=== PATIENT | female | born 1980 | race Caucasian/White ===

== ENCOUNTER 2020-02-08 06:37 | Day surgery (SDC) | payer BC, OTHER ==
[~2020-02-08 06:37] MED LIST: Lactated Ringers 1,000 ML IV SCH
[2020-02-08] MEDS ORDERED: fentaNYL 100 MCG/2 ML SDV ONE ×2 (07:14→08:47)
[2020-02-08] MEDS ORDERED: Lidocaine 2% 5 ML SDV ONE (07:14)
[2020-02-08] MEDS ORDERED: Ketorolac 30 MG/ML SDV ONE (07:14)
[2020-02-08] MEDS ORDERED: Ondansetron 4 MG/2 ML SDV ONE (07:14)
[2020-02-08] MEDS ORDERED: Glycopyrrolate 0.2 MG/ML SDV ONE (07:14)
[2020-02-08] MEDS ORDERED: Midazolam 1 MG/ML 2 ML SDV ONE (07:14)
[2020-02-08] MEDS ORDERED: Propofol 200 MG/20 ML SDV ONE ×2 (07:14→08:13)
--- NOTE | 2020-02-08 07:16 | PCM.PREANE ---
Preanesthetic Assessment - Anesthesia/Transfusion/Family Hx Anesthesia History: Prior Anesthesia Without Reaction Family History of Anesthesia Reaction: No Transfusion History: No Prior Transfusion(s) - Review of Systems General: No Symptoms Pulmonary: No Symptoms Cardiovascular: No Symptoms Gastrointestinal: No Symptoms Neurological: No Symptoms Other: Reports: None - Physical Assessment NPO Status Date: 02/07/20 Vital Signs: Last Vital Signs Temp 98.2 F 02/08/20 07:00 Pulse 67 02/08/20 07:00 Resp 18 02/08/20 07:00 BP 107/69 02/08/20 07:00 Pulse Ox 96 02/08/20 07:00 Height: 5 ft 4 in Weight: 119.295 kg Mental Status: Alert & Oriented x3 Airway Class: Mallampati = 2 Dentition: Reports: Normal Dentition ROM/Head Extension: Full Lungs: Clear to Auscultation, Normal Respiratory Effort Cardiovascular: Regular Rate, Regular Rhythm - Lab Values: Laboratory Last Values Urine HCG, Qual NEGATIVE (NEGATIVE) 02/08/20 06:50 - Allergies Allergies/Adverse Reactions: Allergies Allergy/AdvReac Type Severity Reaction Status Date / Time No Known Allergies Allergy Verified 02/02/20 09:14 - Blood Blood Available: No - Anesthesia Plan Pre-Op Medication Ordered: None - Acknowledgements Anesthesia Type Planned: General Anesthesia Pt an Appropriate Candidate for the Planned Anesthesia: Yes Alternatives and Risks of Anesthesia Discussed w Pt/Guardian: Yes Pt/Guardian Understands and Agrees with Anesthesia Plan: Yes Additional Comments: anes prob list: MO, suspect JERMAIN, ckd3- eGFR of 55 PLAN: ga/lma PreAnesthesia Questionnaire HEENT History: Reports: None Cardiovascular History: Reports: None Respiratory History: Reports: None Gastrointestinal History: Reports: None Genitourinary History: Reports: None NUT FORMER History: Reports: Musculoskeletal History: Reports: None Neurological History: Reports: None Psychiatric History: Reports: None Endocrine/Metabolic History: Reports: Obesity/BMI 30+ Hematologic History: Reports: None Immunologic History: Reports: None Oncologic (Cancer) History: Reports: None Dermatologic History: Reports: None - Past Surgical History Head Surgeries/Procedures: Reports: None HEENT Surgical History: Reports: Oral Surgery, Tonsillectomy Cardiovascular Surgical History: Reports: None Respiratory Surgical History: Reports: None GI Surgical History: Reports: None Female Surgical History: Reports: Section Endocrine Surgical History: Reports: None Neurological Surgical History: Reports: None Musculoskeletal Surgical History: Reports: None Oncologic Surgical History: Reports: None Dermatological Surgical History: Reports: None - SUBSTANCE USE Tobacco Use Status *Q: Never Tobacco User - HOME MEDS Home Medications: Home Meds . [No Known Home Meds] 02/02/20 [History] - CURRENT (IN HOUSE) MEDS Current Meds: Current Medications Lactated Ringer's (Ringers, Lactated) 1,000 mls @ 125 mls/hr IV ASDIRECTED [facility] Last Admin: 02/08/20 07:12 Dose: 125 mls/hr Documented by: Cefazolin Sodium/Dextrose 2 gm (/ Premix) 50 mls @ 100 mls/hr IV ONETIME ONE Stop: 02/08/20 08:29
[2020-02-08] MEDS ORDERED: Bupivacaine 25%/EPINEPHrine/PF 0 ML ONE (07:33)
[2020-02-08] MEDS ORDERED: ceFAZolin 1 GM Vial ONE (07:34)
[2020-02-08] MEDS ORDERED: Sodium Chloride 0.9% 20 ML ONE (07:34)
[2020-02-08] MEDS ORDERED: Bupivacaine 0.5% 30 ML SDV ONE (07:36)
[2020-02-08] MEDS ORDERED: ceFAZolin 2 GM in Premix Bag 1 BAG IV ONE (08:00)
[2020-02-08] MEDS ORDERED: Acetaminophen 1,000 MG in Premix Bag 1 BAG IV PRN (08:52)
[2020-02-08] MEDS ORDERED: fentaNYL 100 MCG/2 ML SDV IVPUSH PRN (08:52)
--- NOTE | 2020-02-08 09:48 | PCM.POSTAN ---
POST ANESTHESIA ASSESSMENT - MENTAL STATUS Mental Status: Alert, Oriented - VITAL SIGNS Vital Signs: Last Vital Signs Temp 96.8 F L 02/08/20 09:22 Pulse 70 02/08/20 09:38 Resp 18 02/08/20 09:38 BP 108/52 L 02/08/20 09:38 Pulse Ox 95 02/08/20 09:38 - RESPIRATORY Respiratory Status: Respiratory Rate WNL, Airway Patent, O2 Saturation Stable - CARDIOVASCULAR CV Status: Pulse Rate WNL, Blood Pressure Stable - GASTROINTESTINAL GI Status: No Symptoms - POST OP HYDRATION Hydration Status: Adequate & Stable
--- NOTE | 2020-02-08 10:00 | PCM.OPNOTE ---
- General Post-Op/Procedure Note Date of Surgery/Procedure: 02/08/20 Operative Procedure(s): excision of cysts left foot Findings: consistent with diagnosis Pre Op Diagnosis: cysts left foot Post-Op Diagnosis: cysts left foot Primary Surgeon: Waldo Cisneros Pathology: lobulated cysts left foot in one piece EBL in mLs: 5 Complications: none Condition: Good Free Text/Narrative:: Intake & Output 02/07/20 02/08/20 02/08/20 22:59 06:59 14:59 Intake Total 900 Balance 900 tourniquet time: 40 min materials: 3-0 vicryl, 4-0 vicryl, 4-0 stratafix injectables: 7 ml 0.5% marcaine plain
[2020-02-08] MEDS ORDERED: Acetaminophen/HYDROcodone 325-5 MG Tab PO PRN (10:48)
--- NOTE | 2020-02-08 12:07 | PN ---
The patient is a 39-year-old female. PLANNED PROCEDURE: Excision of cysts, left foot. MEDICAL HISTORY: History of sinusitis. ALLERGIES: No known allergies. ACTIVE PROBLEMS: Include discoloration and thickening of nails of both feet, ganglion or other cysts of left foot, left knee sprain, screening for depression, and vaginal discharge. LABORATORY DATA: White blood cell 10.41, red blood cell 5.14, hemoglobin 14.4, hematocrit 44.0, and platelets 304. Sodium 141, potassium 4.0, chloride 104, CO2 of 27.7, random glucose 88, BUN 16, and creatinine 1.1. Chest x-ray showed no pleural effusion or pneumothorax identified. There is probable lingular atelectasis. The patient has been cleared for surgery by Dr. Elda Kelly and Dr. Javier Rosales. No contraindications to surgery noted. The patient's questions have been asked and answered. Risks and benefits have been discussed with the patient. No guarantees expressed or implied. The patient presents for surgical excision of cysts, left foot today. MARIA ELENA / RACHELL /[id number] MTDD
--- NOTE | 2020-02-08 12:59 | PCM48HPAN ---
Post Anesthesia Note - EVALUATION WITHIN 48HRS OF ANESTHETIC Vital Signs in Normal Range: Yes Patient Participated in Evaluation: Yes Respiratory Function Stable: Yes Airway Patent: Yes Cardiovascular Function Stable: Yes Hydration Status Stable: Yes Pain Control Satisfactory: Yes Nausea and Vomiting Control Satisfactory: Yes Mental Status Recovered: Yes Vital Signs: Last Vital Signs Temp 97.2 F 02/08/20 09:45 Pulse 64 02/08/20 10:59 Resp 16 02/08/20 10:59 BP 102/64 02/08/20 10:59 Pulse Ox 96 02/08/20 10:59
--- NOTE | 2020-02-09 05:23 | OR ---
SURGEON: Waldo Cisneros DPM DATE OF PROCEDURE: 02/08/2020 OPERATIVE PROCEDURE: Excision of cyst, left foot. PREOPERATIVE DIAGNOSIS: Cyst, left foot. POSTOPERATIVE DIAGNOSIS: Cyst, left foot. ANESTHESIA: General. HEMOSTASIS: An above-ankle pneumatic tourniquet on the left lower extremity inflated to 250 mmHg for a tourniquet time of 40 minutes. ESTIMATED BLOOD LOSS: 5 mL. PATHOLOGY: A lobulated cyst, left foot, removed in 1 piece. COMPLICATIONS: None. MATERIALS: 3-0 Vicryl, 4-0 Vicryl, and 4-0 Stratafix. INJECTABLES: 7 mL of 0.5% Marcaine plain. CONDITION: The patient tolerated the procedure and the anesthesia well with no complications noted. JUSTIFICATION FOR THE PROCEDURE: The patient has longstanding pain on the dorsolateral left midfoot due to the formation and growth of a cyst, likely a ganglion, although this is still to be determined, on the dorsolateral aspect of her left foot, impeding her ability to wear shoe gear comfortably, and conservative treatment, including aspiration of the site, has failed to provide lasting alleviation of the symptoms for the patient; therefore, the patient has been advised and has elected to proceed with surgical excision of the cyst on the left foot. All of the patient's questions were asked and answered, no guarantees were expressed or implied, and the patient signed a written consent form with a witness present, and it was placed in the patient's chart. PROCEDURE IN DETAIL: The patient was brought to the operating room and placed on the operating table, at which time an aseptic scrub and drape was performed about the patient's left foot. A time-out was performed, verifying the correct surgical site and planned procedure. The incision site was marked. An Esmarch bandage exsanguination was performed. The tourniquet was inflated. An oblique incision, approximately 3 cm in length, was made over the palpable mass on the left foot. All small bleeders were cauterized as necessary, and layered dissection was performed. The ganglion cyst was identified. It was excised in toto, and I would add that it appeared to be multilobulated, and it appeared to be ganglion in nature, but this is for Pathology to determine. The mass was placed in a sterile formalin- filled container and sent to Pathology for gross and histologic examination. The area was flushed with normal sterile saline and reexamined for any further evidence of remaining cyst material. None was found, and layered closure commenced with the deep tissue closed with 3-0 Vicryl, subcutaneous with 4-0 Vicryl, and the superficial skin with 4-0 Stratafix suture in a running subcuticular fashion. 7 mL of 0.5% Marcaine plain was injected about the surgical site. The tourniquet was deflated at a time of 40 minutes. Prompt hyperemic response was noted to the digits of the left foot. Steri-Strips were applied. Betadine-soaked Xeroform gauze, layered 4 x 4 gauze, and Kerlix roll were applied and were secured with an Suraj bandage, and the patient was placed in a postop shoe for protection, and the patient did tolerate the procedure and anesthesia well with no complications noted and was transported to Recovery, where she is being discharged once stable. The patient has written discharge instructions and will be in touch with me to schedule a reappointment within 2 days for followup and initial dressing change. MARIA ELENA / RACHELL /[id number]
== END 2020-02-08 13:00 | disposition home or self-care (01) ==
LOC: MW.SDS 06:37
PROVIDERS: ATTEND Podiatrist Foot & Ankle Surgery
DX: M67.472 Ganglion, left ankle and foot (principal); Z98.890 Other specified postprocedural states
CPT/HCPCS: 28090; 81025; 88304; A9270; J0690; J1885; J2001; J2250; J2405; J2704; J3490; J7120; 01470; J3010